=== PATIENT | male | born 1950 | race Caucasian/White ===

== ENCOUNTER 2016-11-03 05:31 | Day surgery (SDC) | payer OTHER, MEDICARE ==
--- NOTE | ~2016-11-03 | EGD ---
EGD REPORT [facility] [address] [place] [address] NAME: Rosita MADSEN : [birth year] STATUS : [place] [facility] [place] [id number] AGE: 66 ADM/REG DATE : 11/03/16 MR#: [id number] REPORT SERV DATE: 11/03/16 DICTATED BY: TELLY TINAJERO DATE: 11/03/16 REPORT STATUS : Draft TRANSCRIBED BY: [facility] DATE: 11/03/16 [facility] Patient Name: Rosita Madsen Date of : 1950 Attending MD: TELLY TINAJERO MD Procedure Date No Time: 11/03/2016 Procedure: Colonoscopy Indications: Screening for colorectal malignant neoplasm; average risk; last exam 2004. Patient Profile: Informed consent was obtained from the patient by me prior to the procedure. Risks, benefits, and alternatives were discussed including the risk of bleeding, perforation, infection, reaction to medicine, missed lesion, and cardiopulmonary complications. Referring MD: JULY SANTANA Medicines: Monitored Anesthesia Care Complications: No immediate complications. Procedure: Pre-Anesthesia Assessment: - ASA Grade Assessment: III - A patient with severe systemic disease. After I obtained informed consent, the scope was passed under direct vision. Throughout the procedure, the patient's blood pressure, pulse, and oxygen saturations were monitored continuously. The PCF [id number] was introduced through the anus and advanced to the cecum, identified by appendiceal orifice and ileocecal valve. The colonoscope was slowly withdrawn with careful examination all mucosal surfaces including specific attention around flexures and tip deflection behind folds; retroflexion performed in rectum. The colonoscopy was performed without difficulty. The patient tolerated the procedure well. The quality of the bowel preparation was adequate. The ileocecal valve, appendiceal orifice and rectum were photographed. Findings: A sessile polyp was found in the rectum. The polyp was 7 mm in size. The polyp was removed with a cold snare. Resection was complete, but the polyp tissue was not retrieved. Multiple medium-mouthed diverticula were found in the sigmoid colon, in the descending colon, in the transverse colon and at the hepatic flexure. Internal hemorrhoids were found during retroflexion and were mild. Impression: - One 7 mm polyp in the rectum. Complete resection. Polyp tissue not retrieved. EGD REPORT [address] [address] NAME: Rosita MADSEN : [birth year] STATUS : REG [facility]#: [id number] AGE: 66 ADM/REG DATE : 11/03/16 MR#: [id number] REPORT SERV DATE: 11/03/16 DICTATED BY: TELLY TINAJERO DATE: 11/03/16 REPORT STATUS : Draft TRANSCRIBED BY: [employer] DATE: 11/03/16 - Diverticulosis in the sigmoid colon, in the descending colon, in the transverse colon and at the hepatic flexure. - Internal hemorrhoids. Recommendation: - Patient has a contact number available for emergencies. The signs and symptoms of potential delayed complications were discussed with the patient. Return to normal activities tomorrow. Written discharge instructions were provided to the patient. - Regular diet. - Continue present medications. - Repeat colonoscopy in 5 years for surveillance. Procedure Code(s): --- Professional --- 83895, Colonoscopy, flexible, proximal to splenic flexure; with removal of tumor(s), polyp(s), or other lesion(s) by snare technique Diagnosis Code(s): --- Professional --- K62.1, Rectal polyp K64.8, Other hemorrhoids K57.30, Diverticulosis of large intestine without perforation or abscess without bleeding Z12.11, Encounter for screening for malignant neoplasm of colon CPT copyright 2013 [employer]. All rights reserved. The codes documented in this report are preliminary and upon furniture sales consultant review may be revised to meet current compliance requirements. TELLY TINAJERO MD 11/03/2016 7:32 AM This report has been signed electronically. Number of Addenda: 0 Note Initiated On: 11/03/2016 7:00 AM Scope Withdrawal Time 0 hours 12 minutes 3 seconds [id number] [id number]
[~2016-11-03 05:31] MED LIST: GLUCPH PO; LIPITOR20 PO; NEXIUM40 PO; PRIN20 PO
== END 2016-11-03 23:59 | disposition home or self-care (01) ==
LOC: DMU 05:31
PROVIDERS: Internal Medicine Gastroenterology
PROC: 0DBP8ZZ Excision of Rectum, Via Natural or Artificial Opening Endoscopic (ICD-10-PCS; principal; 2016-11-03 07:00)
DX: Z12.11 Encounter for screening for malignant neoplasm of colon (principal); K62.1 Rectal polyp; K57.30 Diverticulosis of large intestine without perforation or abscess without bleeding; K64.8 Other hemorrhoids; E11.9 Type 2 diabetes mellitus without complications; E78.5 Hyperlipidemia, unspecified; E66.01 Morbid (severe) obesity due to excess calories; G47.33 Obstructive sleep apnea (adult) (pediatric); E78.00 Pure hypercholesterolemia, unspecified; I10 Essential (primary) hypertension; Z88.5 Allergy status to narcotic agent; Z79.899 Other long term (current) drug therapy; Z99.89 Dependence on other enabling machines and devices; Z98.84 Bariatric surgery status; Z98.890 Other specified postprocedural states
CPT/HCPCS: 82962